=== PATIENT | male | born 1970 | race Caucasian/White ===

== ENCOUNTER 2017-01-16 14:19 | Emergency (ER) | payer OTHER ==
[2017-01-16] MEDS ORDERED: ONDANSETRON INJ 4 MG/2 ML VIAL IV ONE (14:32)
[2017-01-16] MEDS ORDERED: SODIUM CHLORIDE 0.9% (FLUSH) 10 ML SYG IV PRN (14:32)
[2017-01-16] MEDS ORDERED: ASPIRIN TABLET 325 MG TAB PO ONE (14:32)
[2017-01-16] MEDS ORDERED: MORPHINE SULFATE INJ 10 MG/ML VIAL IV PRN (14:33)
--- NOTE | 2017-01-16 14:57 | RAD ---
SINGLE VIEW CHEST X-RAY. 01/16/2017 2:32 PM CDT INDICATION: Chest TECHNIQUE: Single frontal view of the chest was performed. COMPARISON: None FINDINGS: The lungs are clear without consolidation. There are no effusions. No evidence of pneumothorax. The cardiomediastinal silhouette is within normal limits. Osseous structures show no significant finding. The visualized abdomen is unremarkable. IMPRESSION: No acute cardiopulmonary process. Electronically signed by: Kassidy Vargas MD 01/16/2017 2:57 PM CDT
[2017-01-16 16:49] VITALS: O2SAT 98
--- NOTE | 2017-01-16 17:42 | ED.PDOC ---
History of Present Illness - General Chief Complaint: Chest Pain/VT Stated Complaint: CHEST PAIN Time Seen by Provider: 01/16/17 14:32 Source: patient, RN notes reviewed, Vital Signs reviewed, family Exam Limitations: no limitations Additional Information: Pt reports over the past week he has had intermittent chest pain radiating down left arm. No association noted with exertion. Pain usually self-limited within 5 to 10 minutes. No associated diaphoresis or jaw pain. Pt has significant risk factors of diabetes, smoking, HTN, HLD, age, male. - History of Present Illness Timing/Duration: 1 week Severity/Quality: moderate, aching Location: substernal Chest Pain Radiation: arms - left arm Prior Chest Pain/Cardiac Workup: no prior cardiac workup Improving Factors: nothing Worsening Factors: nothing Nitro Today/Relief: no nitro taken today Aspirin Treatment Today: 81 mg x 1 Associated Symptoms: denies symptoms Allergies/Adverse Reactions: Allergies Penicillins Allergy (Verified 11/14/15 21:54) Home Medications: Ambulatory Orders Glipizide 5 mg PO BID 11/14/15 Levothyroxine Sodium 50 mcg PO AC 11/14/15 Lisinopril 20 mg PO DAILY 11/14/15 Metformin HCl [Metformin HCl ER] 1,000 mg PO BID 11/14/15 Pravastatin Sodium [Pravachol] 10 mg PO BEDTIME 11/14/15 Review of Systems - Review of Systems Constitutional: States: no symptoms reported EENTM: States: no symptoms reported Respiratory: States: no symptoms reported Cardiology: States: see HPI Gastrointestinal/Abdominal: States: no symptoms reported Genitourinary: States: no symptoms reported Musculoskeletal: States: no symptoms reported Skin: States: no symptoms reported Neurological: States: no symptoms reported Endocrine: States: no symptoms reported Past Medical History (General) - Patient Medical History Hx Seizures: No Hx Asthma: Yes - childhood asthma Hx of COPD: No Hx Cardiac Disorders: No Hx Congestive Heart Failure: No Hx Pacemaker: No Hx Hypertension: Yes Hx Diabetes: Yes Hx MRSA: No Surgical History: other - Social History Hx Alcohol Use: No Hx Substance Use: No Hx Physical Abuse: No Hx Emotional Abuse: No Family Medical History - Family History Mother Living Status: Still Living Hx Family Asthma: Yes Hx Family Congestive Heart Failure: Yes Hx Family Hypertension: No Hx Family Stroke: No Hx Cardiac Disease: No Hx Family Diabetes: No Hx Family Cancer: No Father Living Status: Hx Family Cancer: Yes - prostate Physical Exam - Physical Exam General Appearance: Alert, Anxious, No apparent distress, Well Developed, Well Groomed, Well Hydrated, Well Nourished Eyes, Ears, Nose, Throat Exam: PERRL/EOMI, normal ENT inspection, pharynx normal Neck: non-tender, full range of motion, supple, normal inspection Respiratory: lungs clear, normal breath sounds, no respiratory distress, no accessory muscle use Cardiovascular/Chest: normal peripheral pulses, regular rate, rhythm, no edema, no murmur Gastrointestinal/Abdominal: non tender, soft Extremity: normal range of motion, non-tender, normal inspection 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 Nonetheless, Pt with serial cardiac enzymes, EKG, CXR, and D-Dimer all negative/normal which provided reassurance to patient. He is still at risk for heart disease given his numerous comorbidities. Spent over 3 minutes discussing importance of smoking cessation and resources available to help him quit. Patient stable for d/c home and referral from PCM for Cardiac Stress Testing. If negative, Pt may benefit from trial of SSRIs for suspected Panic Disorder. - Results/Orders Results/Orders: 01/16/17 14:32 Telemetry .ONCE Sodium Chloride 0.9% (Flush) [Saline Flush Syringe] 10 ml IV PRN PRN 01/16/17 14:33 Morphine Sulfate Inj 2 mg IV ONCE PRN EKG Assessment ONCE Pulse Oximetry Assessment DAILY Laboratory Results - last 24 hr 01/16/17 01/16/17 01/16/17 14:41 17:00 17:00 WBC 10.3 RBC 4.47 L Hgb 13.8 L Hct 40.9 L MCV 91.5 MCH 30.8 MCHC 33.8 RDW 13.6 Plt Count 230 MPV 8.0 Absolute Neuts (auto) 5.60 Absolute Lymphs (auto) 3.80 H Absolute Monos (auto) 0.50 Absolute Eos (auto) 0.30 Absolute Basos (auto) 0.10 Neutrophils % 54.8 Lymphocytes % 36.7 Monocytes % 5.3 Eosinophils % 2.6 Basophils % 0.6 PT 10.3 INR 0.910 PTT (SP) 29.2 D-Dimer, Quantitative < 230 Sodium 136 Potassium 4.0 Chloride 104 Carbon Dioxide 24 Anion Gap 12.0 BUN 22 H Creatinine 1.11 BUN/Creatinine Ratio 19.8 Random Glucose 266 H Serum Osmolality 284.6 Calcium 9.4 Magnesium 1.6 L Creatine Kinase 189 H 170 CK-MB (CK-2) 3.4 3.2 CK-MB (CK-2) % Not Reportable Not Reportable Troponin I < 0.02 < 0.02 B-Natriuretic Peptide 9.5 01/16/17 01/16/17 01/16/17 14:24 15:17 16:48 Pulse Rate [ 77 64 68 APICAL] Respiratory 20 20 20 Rate Blood Pressure 135/91 132/92 139/74 [LEFT BRACHIAL] O2 Sat by Pulse 99 99 98 Oximetry - EKG/XRAY/CT EKG: Sinus, no ST T wave changes XRAY: chest - no acute abnormalities Departure - Departure Clinical Impression: Atypical chest pain, Uncontrolled diabetes mellitus, Smoker Time of Disposition: 17:45 Disposition: Discharge to Home or Self Care Condition: Good Departure Forms: ED Discharge - Pt. Copy, Patient Portal Self Enrollment Instructions: DI for Atypical Chest Pain Referrals: Omega Dove MD [Primary Care Provider] - 1-5 Days Home Medications: Ambulatory Orders Glipizide 5 mg PO BID 11/14/15 Levothyroxine Sodium 50 mcg PO AC 11/14/15 Lisinopril 20 mg PO DAILY 11/14/15 Metformin HCl [Metformin HCl ER] 1,000 mg PO BID 11/14/15 Pravastatin Sodium [Pravachol] 10 mg PO BEDTIME 11/14/15 Additional Instructions: Follow up with Primary Care Provider in order to set up Cardiac Stress Test. If Cardiac Stress test is negative, discuss other treatment options with your primary care provider such as a trial of a medicine like Zoloft. Quitting Smoking is the single most important thing to do to improve your overall health and wellness. Call 4-215-AWJP-NOW if you would like resources and tips to help you quit smoking. Return to ER if condition worsens. Work excuse for today.
[2017-01-16 19:06] VITALS: BP 121/85
== END 2017-01-16 18:00 | disposition home or self-care (01) ==
LOC: ER 14:19
DX: R07.89 Other chest pain (principal); E11.65 Type 2 diabetes mellitus with hyperglycemia; F17.200 Nicotine dependence, unspecified, uncomplicated; I10 Essential (primary) hypertension; E78.5 Hyperlipidemia, unspecified; Z88.0 Allergy status to penicillin; Z80.42 Family history of malignant neoplasm of prostate
CPT/HCPCS: 36415; 71010; 80048; 82550; 82553; 83880; 84484; 85025; 85379; 85610; 85730; 93005; J2270; J2405

== ENCOUNTER 2017-01-22 05:00 | Emergency (ER) | payer OTHER ==
[2017-01-22] MEDS ORDERED: ONDANSETRON INJ 4 MG/2 ML VIAL IV ONE (05:05)
[2017-01-22] MEDS ORDERED: SODIUM CHLORIDE 0.9% (FLUSH) 10 ML SYG IV PRN (05:05)
[2017-01-22] MEDS ORDERED: ASPIRIN TABLET 325 MG TAB PO ONE (05:05)
[2017-01-22] MEDS: NITROGLYCERIN 0.4 MG 25 EA TAB SL ONE ×2 (05:05→05:25)
--- NOTE | 2017-01-22 05:05 | ED.PDOC ---
History of Present Illness - General Chief Complaint: Cardiovascular Problem Stated Complaint: chest pain Time Seen by Provider: 01/22/17 05:03 Source: patient, RN notes reviewed, Vital Signs reviewed Exam Limitations: no limitations - History of Present Illness Initial Comments: Red Dubon 46 y/o male stated that he had sudden onset of stabbing chest pain at about 0330h early this am intermittent which got worse an hour later and decided to come to [facility]. Was seen here 5 days ago with same symptoms had normal ekg and cardiac enzymes. Timing/Duration: 1-3 hours, getting worse Severity: severe Location: central Activities at Onset: sleep Prior Chest Pain/Cardiac Workup: no prior cardiac workup Improving Factors: nothing Worsening Factors: nothing Nitro Today/Relief: 0.4 mg x 1, provided by ED Aspirin Treatment Today: 325 mg x 1, provided by ED Associated Symptoms: diaphoresis, shortness of breath Allergies/Adverse Reactions: Allergies Penicillins Allergy (Verified 01/22/17 05:36) Home Medications: Ambulatory Orders Glipizide 5 mg PO BID 11/14/15 Levothyroxine Sodium 50 mcg PO AC 11/14/15 Lisinopril 20 mg PO DAILY 11/14/15 Metformin HCl [Metformin HCl ER] 1,000 mg PO BID 11/14/15 Pravastatin Sodium [Pravachol] 10 mg PO BEDTIME 11/14/15 Review of Systems - Review of Systems Constitutional: States: diaphoresis EENTM: States: no symptoms reported Respiratory: States: see HPI Cardiology: States: see HPI Gastrointestinal/Abdominal: States: no symptoms reported Genitourinary: States: no symptoms reported Musculoskeletal: States: no symptoms reported Skin: States: no symptoms reported Neurological: States: no symptoms reported Endocrine: States: no symptoms reported Hematologic/Lymphatic: States: no symptoms reported Past Medical History (General) - Patient Medical History Hx Seizures: No Hx Asthma: Yes - childhood asthma Hx of COPD: No Hx Cardiac Disorders: No Hx Congestive Heart Failure: No Hx Pacemaker: No Hx Hypertension: Yes Hx Diabetes: Yes Hx MRSA: No Surgical History: other - hernia repair - Social History Hx Tobacco Use: Yes Years Tobacco Use: 20 Cigarettes Packs Per Day: 20 Hx Alcohol Use: No Hx Substance Use: No Hx Physical Abuse: No Hx Emotional Abuse: No - Activities of Daily Living Patient Lives Alone: No - family Grooming Ability: Independent Eating (Feeding) Ability: Independent Toileting Ability: Independent Family Medical History - Family History Mother Living Status: Still Living Hx Family Asthma: Yes Hx Family Congestive Heart Failure: Yes Hx Family Hypertension: No Hx Family Stroke: No Hx Cardiac Disease: No Hx Family Diabetes: No Hx Family Cancer: Yes - prostate-dad;follicular lymphoma-mom Father Living Status: Hx Family Cancer: Yes - prostate Physical Exam - Physical Exam General Appearance: Alert, Anxious, Comfortable, No apparent distress Eyes, Ears, Nose, Throat Exam: PERRL/EOMI, normal ENT inspection, TMs normal Neck: non-tender, full range of motion Respiratory: chest non-tender, lungs clear, normal breath sounds, no respiratory distress Cardiovascular/Chest: normal peripheral pulses, regular rate, rhythm, no edema, no gallop, no murmur Peripheral Pulses: radial,right: 2+, radial,left: 2+ Gastrointestinal/Abdominal: normal bowel sounds, non tender, soft, no organomegaly Extremity: normal range of motion, non-tender, normal inspection Neurologic: no motor/sensory deficits, alert, normal mood/affect, oriented x 3 Skin Exam: normal color Lymphatic: no adenopathy Progress - EKG/XRAY/CT EKG: ST elevation Comments: Heart rate-71 Departure - Departure Clinical Impression: Myocardial infarction acute Qualifiers: Myocardial infarction ST status: ST elevation myocardial infarction Involved coronary artery: LAD coronary artery Qualified Code(s): I21.02 - ST elevation ( STEMI) myocardial infarction involving left anterior descending coronary artery Time of Disposition: 06:07 - D/W Dr.Evan Clyde garces md [facility] Disposition: Transfer to Hospital Condition: Fair Referrals: Omega Dove MD [Primary Care Provider] - 1-2 Weeks Home Medications: Ambulatory Orders Glipizide 5 mg PO BID 11/14/15 Levothyroxine Sodium 50 mcg PO AC 11/14/15 Lisinopril 20 mg PO DAILY 11/14/15 Metformin HCl [Metformin HCl ER] 1,000 mg PO BID 11/14/15 Pravastatin Sodium [Pravachol] 10 mg PO BEDTIME 11/14/15 Critical Care Note - Critical Care Note Comments: 0510 Red Dubon 46 y/o male with history of diabetes mellitus 2 high blood pressure, elevated cholesterol, and 1ppd smoker for 20 years had onset of stabbing chest pains about 0300 h on and off and got worse an hour later then decided to come to er.Initial ekg showed anterior wall mi on arrival at [facility] brought by this was relayed to the patient and recommended tnkase side effects explained to patient regarding serious bleeding with the medication including from bleeding Signed consent form and agreed to have the tnkase gien to him. TNKASE per hospital protocol was given at 0523 h,plavix 300mg po, heparin bolus of 4000 units iv and drip and nitro drip to titrate for chest pain symptoms.[facility] ER was called up at 0540 hour and discuss case with Dr. Jacob Tang er md for Transfer. Patient had bp 125/81;hr 87 r-12 [id number]%.
[2017-01-22] MEDS ORDERED: NITROGLYCERIN 0.4 MG 25 EA TAB SL ONE (05:07)
[2017-01-22] MEDS ORDERED: ASPIRIN (CHEWABLE) 81 MG TAB ONE (05:08)
[2017-01-22] MEDS ORDERED: TENECTEPLASE 50 MG VIAL ONE (05:12)
[2017-01-22] MEDS ORDERED: TENECTEPLASE 50 MG VIAL IV ONE (05:20)
[2017-01-22] MEDS ORDERED: HEPARIN SODIUM (PORCINE) 5,000 U/ML VIAL ONE (05:35)
[2017-01-22 05:36] VITALS: O2SAT 97
[2017-01-22] MEDS ORDERED: HEPARIN SODIUM (PORCINE) 5,000 U/ML VIAL IV ONE (05:37)
[2017-01-22] MEDS ORDERED: CLOPIDOGREL 75 MG TAB PO ONE (05:38)
--- NOTE | 2017-01-22 05:39 | RAD ---
EXAM: Single view chest. INDICATION: Chest pain. COMPARISON: Chest x-ray: 01/16/2017. FINDINGS: Cardiac silhouette: Unremarkable. Nancy: Unremarkable. Lobar consolidation: None. Pleural effusion: None. Pneumothorax: None. Other: None. Bones: Unremarkable. Other: None. IMPRESSION: 1. No acute cardiopulmonary process. Electronically signed by: Clifford Rivero MD 01/22/2017 5:39 AM CDT Workstation: [id number]
[2017-01-22] MEDS ORDERED: HEPARIN PREMIX 500 ML ONE (05:40)
[2017-01-22] MEDS ORDERED: NITROGLYCERIN/D5W IV 250 ML IVS ONE (05:40)
[2017-01-22] MEDS ORDERED: HEPARIN PREMIX 25,000 UNITS in PREMIX BAG 1 BAG IVS SCH (05:45)
[2017-01-22] MEDS ORDERED: NITROGLYCERIN/D5W IV 50,000 MCG in PREMIX BOTTLE 1 BOTTLE IVS SCH (06:00)
[2017-01-22 06:54] VITALS: BP 147/76; TEMP 96.7
== END 2017-01-22 06:54 | disposition short-term general hospital (02) ==
LOC: ER 05:00
DX: I21.02 ST elevation (STEMI) myocardial infarction involving left anterior descending coronary artery (principal); J45.909 Unspecified asthma, uncomplicated; I10 Essential (primary) hypertension; E11.9 Type 2 diabetes mellitus without complications; Z88.0 Allergy status to penicillin; Z79.899 Other long term (current) drug therapy; Z87.891 Personal history of nicotine dependence
CPT/HCPCS: 36415; 71010; 80048; 80076; 82550; 82553; 83880; 84484; 85025; 85379; 85610; 85730; 93005; 94760; J1644; J2405; J3101

== ENCOUNTER → 2017-06-09 | Outpatient (CLI) | payer OTHER | END | disposition home or self-care (01) | LOC: GMAJ 10:48 | PROVIDERS: ATTEND Family Medicine | DX: Z12.5 Encounter for screening for malignant neoplasm of prostate (principal); I10 Essential (primary) hypertension | CPT/HCPCS: 84443; G0103 ==

== ENCOUNTER → 2017-09-28 | Outpatient (CLI) | payer OTHER | LOC: GMAJ 10:32 | PROVIDERS: ATTEND Family Medicine | DX: Z00.01 Encounter for general adult medical examination with abnormal findings (principal) ==

== ENCOUNTER → 2018-01-04 | Outpatient (CLI) | payer OTHER | LOC: GMAJ 11:08 | PROVIDERS: ATTEND Family Medicine | DX: E03.9 Hypothyroidism, unspecified (principal) ==